=== PATIENT | male | born 1975 | race Caucasian/White ===

== ENCOUNTER 2019-07-13 13:22 | Emergency (ER) | payer MEDICARE, SELFPAY ==
--- NOTE | ~2019-07-13 | CT_ITS ---
EXAMINATION: CT brain wo con DATE: 07/13/2019 14:39 INDICATION: Numbness and weakness TECHNIQUE: Computed tomography (CT) of the head was performed without intravenous contrast. The dose- length product was 605.33 mGy-cm. The mA was adjusted according to patient size. Iterative reconstruc tion technique was employed. COMPARISON: CT dated 11/16/2007 FINDINGS: No acute intracranial hemorrhage, infarction, mass or mass effect. No ventriculomegaly or m idline shift. Basilar cisterns are patent. Paranasal sinuses and mastoids are pneumatized. No depress ed skull fractures. Midline sagittal images are unremarkable. IMPRESSION: 1. No acute intracranial abnormality. Reviewed, dictated and finalized at location A.
--- NOTE | ~2019-07-13 | XR_ITS ---
EXAMINATION: XR chest 2V 07/13/2019 13:42 INDICATION: Chest pain for 2 days PROCEDURE: PA and lateral views of the chest COMPARISON: No prior studies for comparison. FINDINGS: The lungs are clear. The cardiomediastinal silhouette is within normal limits. There are no pleural effusions. There is no pneumothorax suspected. IMPRESSION: 1: NO ACUTE CARDIOPULMONARY DISEASE. Reviewed, dictated and finalized at location A.
--- NOTE | 2019-07-13 13:25 | ECG_ITS ---
Measurements Intervals [place] Rate: 85 P: 47 [place]: 161 QRS: -10 QRSD: 99 T: 23 QT: 324 QTc: 387 Interpretive Statements SINUS RHYTHM INCOMPLETE RIGHT BUNDLE BRANCH BLOCK VOLTAGE CRITERIA FOR LVH BASELINE ARTIFACT- I, III, AVL, AVF, V1 BORDERLINE ECG Electronically Signed On 07-13-2019 13:31:01 CDT by Leonard Root D.O.
[2019-07-13 13:26] VITALS: BP 158/91; PULSE 94; RESP 22; TEMP 37.1; O2SAT 99
[2019-07-13 13:33] VITALS: PULSE 91
[2019-07-13] MEDS: ASPIRIN 81 MG CHEWABLE TABLET 324 MG PO (13:39)
[2019-07-13 13:43] LABS: Basophils Percent Auto 0.4 % (0.2-1.2); Eosinophils Percent Auto 0.4 % (0-4.4); Hematocrit 47.1 % (42.0-52.0); Hemoglobin 15.8 g/dL (14.0-18.0); Immature Granulocyte Absolute 0.02 K/mm3 (0.00-0.031); Immature Granulocyte Percent A 0.2 % (0-0.5); Lymphocytes Absolute Auto 1.78 K/mm3 (0.9-3.2); Lymphocytes Percent Auto 21.2 % (18.3-44.2); Mean Corpuscular HGB Conc 33.5 g/dl (32-36); Mean Corpuscular Hemoglobin 28.2 pg (26-34); Mean Platelet Volume 11.1 fl (7.4-10.4); Monocytes Absolute Auto 0.6 K/mm3 (0.1-0.6); Monocytes Percent Auto 6.9 % (2.6-8.5); Neutrophils Absolute Auto 5.9 K/mm3 (1.3-6.7); Neutrophils Percent Auto 70.9 % (45.5-73.1); Platelet Count Result 156 k/mm3 (150-375); Red Blood Count 5.61 M/mm3 (4.6-6.20); Red Cell Distribution Width 13.7 % (11.5-14.5); White Blood Count 8.4 K/mm3 (4.5-10.0)
--- NOTE | 2019-07-13 13:49 | ED.CHESTPAIN ---
HPI - Chest Pain General Chief Complaint: Chest Pain Stated Complaint: CHEST PAIN X2D Time Seen by Provider: 07/13/19 13:32 Source: patient Mode of arrival: ambulatory Limitations: no limitations History of Present Illness HPI narrative: Patient is a 43-year-old gentleman who presents for evaluation of facial numbness and chest pain. Patient states that on Friday he began experiencing facial numbness that now has progressed and he now feels some paresthesias and numbness throughout his entire body, patient states that overnight he had left-sided chest pain that traveled down his left arm. At one point, patient states he had difficulty speaking and felt somewhat confused, but this has resolved. The chest pain was described as a dull, aching pressure over the center of his chest associated with left arm numbness, heaviness and feeling sweaty. No nausea, vomiting, cough or shortness of breath. No lower extremity swelling or redness. No history of CT. Patient ambulated into the emergency department. Related Data Allergies Allergy/AdvReac Type Severity Reaction Status Date / Time poison oak extract Allergy Unknown Rash Verified 12/08/17 13:59 Review of Systems Review of Systems: Narrative: CONSTITUTIONAL: Denies fever, chills, reports diaphoresis yesterday CARDIOVASCULAR: Reports chest pain, denies palpitations or edema RESPIRATORY: Denies cough or dyspnea. GASTROINTESTINAL: Denies abdominal pain, nausea, vomiting, or diarrhea. GENITOURINARY: Denies dysuria or hematuria. SKIN: Denies rash or itching. MUSCULOSKELETAL: Denies back pain, joint pain, or myalgia. NEUROLOGIC: Denies headache, reports numbness in his hands and extremities PSYCHIATRIC: Denies anxiety or depression. [facility] Past Medical History Medical History (Updated 07/13/19 @ 15:19 by Selena De Los Santos MD) Acid reflux Alcohol use Anxiety Constipation Diabetes Diarrhea Methadone use Testicular cancer Surgical History Surgical History (Updated 07/13/19 @ 13:52 by Selena De Los Santos MD) History of appendectomy History of carpal tunnel surgery Hx of cholecystectomy Social History Social History (Updated 07/13/19 @ 13:53 by Selena De Los Santos MD) Smoking status: Current every day smoker Alcohol intake: current Substance use: former Living arrangements: with family Gender identity (if verbalized by the patient): Male Exam Narrative: Exam Narrative: GENERAL: Awake, alert, conversant HEAD: Normocephalic, atraumatic. EYES: PERRLA and EOMI. ENT: Nares clear, no rhinorrhea or epistaxis. Mucous membranes moist. NECK: Supple. CHEST: No respiratory distress, breathing even and non labored HEART: Regular rate, sinus rhythm ABDOMEN:Non distended, non tender EXTREMITIES: Normal range of motion. No edema. SKIN: Warm, dry, no rash. NEURO: Alert and oriented x3 patient unable to complete [id number] on the left due to pain in his left arm and difficulty with movement.. EOMs intact without nystagmus. No facial droop/asymmetry noted bilaterally. Grimace intact. No dysarthria. Intact sensation in face. Hearing intact bilaterally. Shoulder shrug intact. Strength 4/5 left upper extremity, 5 out of 5 right upper extremity, patient resists his arm following, there is no flaccid paralysis.. Strength 5/5 bilateral lower extremities. Reflexes 2+ patellar. Ambulatory exam deferred, pt was able to ambulate in the emergency department Course Vital Signs Vital signs: Vital Signs Temperature 37.1 C 07/13/19 13:26 Pulse Rate 94 07/13/19 13:26 Respiratory Rate 22 H 07/13/19 13:26 Blood Pressure 158/91 H 07/13/19 13:26 Pulse Oximetry 99 07/13/19 13:26 Temperature 37.1 C 07/13/19 13:26 Pulse Rate 83 07/13/19 15:07 Respiratory Rate 12 07/13/19 15:07 Blood Pressure 142/93 H 07/13/19 15:07 Pulse Oximetry 96 07/13/19 15:07 MDM - Chest Pain MDM Narrative Medical decision making narrative: Patient initially presented for evaluation o
[2019-07-13 13:54] LABS: INR 0.9; Prothrombin Time 12.1 Seconds (11.1-14.7)
[2019-07-13 13:55] LABS: Blood Urea Nitrogen 13 mg/dL (9-20); Calcium 10.2 mg/dL (8.4-10.2); Carbon Dioxide 29 mmol/L (22-30); Chloride 102 mmol/L (98-107); Estimated CRCL calculation 138 ml/min; Estimated Glomerular Filt Rate > 60; Glucose 95 mg/dL (75-110); Partial Thromboplastin Time 28.3 SECONDS (22.3-36.8); Potassium 4.1 mmol/L (3.4-5.0); Sodium 138 mmol/L (137-145)
[2019-07-13 14:07] LABS: Troponin I < 0.012 ng/mL (0.000-0.034)
[2019-07-13 14:24] VITALS: BP 147/91; PULSE 88; RESP 17; O2SAT 95
[2019-07-13 15:07] VITALS: BP 142/93; PULSE 83; RESP 12; O2SAT 96
[2019-07-13 15:38] VITALS: BP 138/93; PULSE 85; RESP 11; O2SAT 96
== END 2019-07-13 15:45 | disposition home or self-care (01) ==
PROVIDERS: Emergency Provider Emergency Medicine; PCP Family Medicine Adolescent Medicine
DX: R20.2 Paresthesia of skin (principal); E11.9 Type 2 diabetes mellitus without complications; Z85.47 Personal history of malignant neoplasm of testis; F17.200 Nicotine dependence, unspecified, uncomplicated; R07.9 Chest pain, unspecified; K21.9 Gastro-esophageal reflux disease without esophagitis
CPT/HCPCS: 36415; 70450; 71046; 80048; 84484; 85025; 85610; 85730; 93005; 99284; A9270

== ENCOUNTER 2019-10-08 08:24 | Outpatient (CLI) | payer MEDICARE, SELFPAY ==
--- NOTE | ~2019-10-08 | MR_ITS ---
EXAMINATION: MR brain/brain stem wo con DATE: 10/08/2019 10:40 INDICATION: Seizure. TECHNIQUE: Magnetic resonance imaging (MRI) of the brain and brainstem was performed without intraven ous contrast. Sequences included sagittal and axial T1-weighted FSE, axial diffusion-weighted FS EPI, axial T2*-weighted GRE, axial T2-weighted FLAIR Propeller, axial T2-weighted Propeller, coronal T2-w eighted FLAIR, and coronal T1-weighted 3D FSPGR. Apparent diffusion coefficient (ADC) maps were creat ed. COMPARISON: Head CT 07/13/2019 FINDINGS: There is no intracranial hemorrhage, acute infarction, or abnormal intracranial mass lesion . The hippocampi are normal symmetric. The ventricles are normal in size. The paranasal sinuses are c lear. The mastoid air cells are normal. The orbits are normal. IMPRESSION: 1. Normal brain. Reviewed, dictated and finalized at location B. IMPRESSION: 1. Normal brain.
--- NOTE | 2019-10-08 13:26 | P.NEURO_ITS ---
Neurology EEG Report General Information Date of Study: 10/08/19 Test: EEG Diagnosis: SEIZURES Date of Recordin1975 EEG Number: [id number] Clinical History: Patient is complaining of cognitive dysfunction over the last couple of years and is getting worse EEG Description: basic resting occipital frequency consist of moderate amount of low voltage to medium voltage 8 to 10 hertz per 2nd alpha admixed with low- voltage 15 to 18 hertz per 2nd beta activity. During drowsiness low voltage beta activity is seen diffusely admixed with waxing and waning posterior alpha rhythm. Bilateral symmetrical sleep spindles are seen during sleep with inte rmittent EKG artifact. Non paroxysmal. Nonfocal focal. Non lateralizing. Impression: Normal EEG during wakefulness and sleep
== END 2019-10-08 08:25 | disposition home or self-care (01) ==
LOC: ANHNEURO 08:26
PROVIDERS: PCP Family Medicine Adolescent Medicine; Visit Provider Psychiatry & Neurology Neurology
DX: R56.9 Unspecified convulsions (principal)
CPT/HCPCS: 70551; 95816

== ENCOUNTER 2019-10-27 08:40 | Outpatient (CLI) | payer MEDICARE, SELFPAY ==
--- NOTE | 2019-10-27 10:30 | NEURO_ITS ---
Patient Number: [id number] Impression: # Non-insulin dependent diabetic complains of numbness and cramps in muscles. # Right mild ulnar neuropathy across the elbow. # Needle/EMG exam revealed mildly neurogenic changes. # Clinical correlation recommended. Nerve Conduction Studies Anti Sensory Summary Table Stim Site NR Peak (ms) P-T Amp (?V) Site1 Site2 Delta-P (ms) Dist (cm) Cesar (m/s) Left Median Anti Sensory (2-3nd Digit) Wrist 3.1 43.8 Wrist 2-3nd Digit 3.1 14.0 45 Wrist 3.0 36.0 Wrist 2-3nd Digit 3.1 14.0 45 Right Median Anti Sensory (2-3nd Digit) Wrist 2.9 71.8 Wrist 2-3nd Digit 2.9 14.0 48 Wrist 2.9 61.6 Wrist 2-3nd Digit 2.9 14.0 48 Left Radial Anti Sensory (Base 1st Digit) Wrist 2.4 14.9 Wrist Base 1st Digit 2.4 0.0 Right Radial Anti Sensory (Base 1st Digit) Wrist 2.8 10.0 Wrist Base 1st Digit 2.8 0.0 Left Sup Fibular Anti Sensory (Ant Lat Mall) 14 cm 3.7 16.8 14 cm Ant Lat Mall 3.7 16.0 43 Right Sup Fibular Anti Sensory (Ant Lat Mall) 14 cm 3.0 19.8 14 cm Ant Lat Mall 3.0 16.0 53 Left Sural Anti Sensory (Lat Mall) Calf 3.6 1.7 Calf Lat Mall 3.6 16.0 44 Right Sural Anti Sensory (Lat Mall) Calf 3.2 7.9 Calf Lat Mall 3.2 16.0 50 Left Ulnar Anti Sensory (5th Digit) Wrist 3.1 23.3 Wrist 5th Digit 3.1 14.0 45 Right Ulnar Anti Sensory (5th Digit) Wrist 2.8 18.7 Wrist 5th Digit 2.8 14.0 50 Motor Summary Table Stim Site NR Onset (ms) O-P Amp (mV) Site1 Site2 Delta-0 (ms) Dist (cm) Cesar (m/s) Left Median Motor (Abd Poll Brev) Wrist 3.0 5.9 Elbow Wrist 6.0 35.0 58 Elbow 9.0 3.0 Right Median Motor (Abd Poll Brev) Wrist 3.0 3.8 Elbow Wrist 5.4 31.0 57 Elbow 8.4 1.5 Left Peroneal Motor (Vastus Med) Ankle 4.4 2.6 Popit Ankle 8.3 44.0 53 Popit 12.7 2.2 Right Peroneal Motor (Vastus Med) Ankle 4.1 5.3 Popit Ankle 8.2 39.0 48 Popit 12.3 3.3 Left Tibial Motor (Abd Moulton Brev) Ankle 4.9 2.3 Knee Ankle 8.9 45.0 51 Knee 13.8 1.9 Right Tibial Motor (Abd Moulton Brev) Ankle 4.8 6.2 Knee Ankle 9.7 46.0 47 Knee 14.5 5.2 Left Ulnar Motor (Abd Dig Minimi) Wrist 3.1 6.4 A Elbow Wrist 5.7 33.0 58 A Elbow 8.8 5.3 Right Ulnar Motor (Abd Dig Minimi) Wrist 3.2 4.0 A Elbow Wrist 6.6 33.0 50 A Elbow 9.8 2.8 B Elbow Wrist 4.4 24.0 55 B Elbow 7.6 2.3 F Wave Studies NR F-Lat (ms) L-R F-Lat (ms) Left Median (Mrkrs) (Abd Poll Brev) 29.20 0.64 Right Median (Mrkrs) (Abd Poll Brev) 29.84 0.64 Left Peroneal (Mrkrs) (EDB) 52.26 0.18 Right Peroneal (Mrkrs) (EDB) 52.08 0.18 Left Tibial (Mrkrs) (Abd Hallucis) 52.91 0.16 Right Tibial (Mrkrs) (Abd Hallucis) 52.74 0.16 Left Ulnar (Mrkrs) (Abd Dig Min) 30.69 0.00 Right Ulnar (Mrkrs) (Abd Dig Min) 30.69 0.00 EMG Side Muscle Nerve Root Ins Act Fibs Amp Dur Recrt Comment Right 1stDorInt Ulnar C8-T1 Nml Nml Nml >12ms Nml Right Ext Indicis Radial (Post Int) C7-8 Nml Nml Nml Nml Nml Right Ext Digitorum Radial (Post Int) C7-8 Nml Nml Nml Nml Nml Right BrachioRad Radial C5-6 Nml Nml Nml Nml Nml Right PronatorTeres Median C6-7 Nml Nml Nml Nml Nml Right Abd Poll Brev Median C8-T1 Nml N
== END 2019-10-27 08:41 | disposition home or self-care (01) ==
LOC: ANHNEURO 08:41
PROVIDERS: PCP Family Medicine Adolescent Medicine; Visit Provider Psychiatry & Neurology Neurology
DX: R20.2 Paresthesia of skin (principal); G56.21 Lesion of ulnar nerve, right upper limb
CPT/HCPCS: 95886; 95913

== ENCOUNTER 2020-03-01 14:33 | Emergency (ER) | payer MEDICARE, SELFPAY ==
--- NOTE | ~2020-03-01 | XR_ITS ---
EXAMINATION: XR chest 1V portable INDICATION: Shortness of breath and headache TECHNIQUE: Portable AP chest at 1546 hours COMPARISON: 07/13/2019 FINDINGS: There are minimal airspace opacities of the lung bases. No pleural effusion or pneumothorax is identified. The cardiomediastinal silhouette is normal. IMPRESSION: 1. Minimal airspace opacities of the lung bases, consistent with atelectasis versus pneumonia. Reviewed, dictated and finalized at location A. T OFFICE DEVELOPER IMPRESSION: 1. Minimal airspace opacities of the lung bases, consistent with atelectasis ve rsus pneumonia.
[2020-03-01 14:40] VITALS: BP 170/105; PULSE 112; RESP 17; TEMP 36.7; O2SAT 97
--- NOTE | 2020-03-01 14:45 | ECG_ITS ---
Measurements Intervals [place] Rate: 96 P: 58 [place]: 170 QRS: -6 QRSD: 102 T: 32 QT: 332 QTc: 421 Interpretive Statements SINUS RHYTHM DELAYED PRECORDIAL R/S TRANSITION VOLTAGE CRITERIA FOR LVH BORDERLINE ECG Electronically Signed On 03-01-2020 15:08:13 JANITOR CARETAKER by Leonard Root D.O.
[2020-03-01 14:49] VITALS: PULSE 99
[2020-03-01 15:33] VITALS: BP 162/93; PULSE 102; RESP 18; O2SAT 95
[2020-03-01 16:03] LABS: Basophils Percent Auto 0.6 % (0.2-1.2); Eosinophils Absolute Auto 0.1 K/mm3 (0-0.3); Eosinophils Percent Auto 0.9 % (0-4.4); Hematocrit 47.8 % (42.0-52.0); Immature Granulocyte Absolute 0.03 K/mm3 (0.00-0.031); Immature Granulocyte Percent A 0.4 % (0-0.5); Immature Platelet Fraction Pct 5.6 % (0.9-11.2); Lymphocytes Absolute Auto 1.85 K/mm3 (0.9-3.2); Lymphocytes Percent Auto 26.6 % (18.3-44.2); Mean Corpuscular HGB Conc 33.5 g/dl (32-36); Mean Corpuscular Hemoglobin 27.9 pg (26-34); Mean Corpuscular Volume 83.3 fl (80-100); Mean Platelet Volume 11.2 fl (7.4-10.4); Monocytes Absolute Auto 0.6 K/mm3 (0.1-0.6); Monocytes Percent Auto 8.1 % (2.6-8.5); Neutrophils Absolute Auto 4.4 K/mm3 (1.3-6.7); Neutrophils Percent Auto 63.4 % (45.5-73.1); Platelet Count Result 139 k/mm3 (150-375); Red Blood Count 5.74 M/mm3 (4.6-6.20); Red Cell Distribution Width 13.7 % (11.5-14.5)
--- NOTE | 2020-03-01 16:09 | ED.SOB ---
HPI - SOB/Dyspnea General Chief Complaint: Shortness of Breath/Dyspnea Stated Complaint: shortness of breath Time Seen by Provider: 03/01/20 14:37 History of Present Illness HPI Narrative: Patient is a 44-year-old male who presents ER with shortness of breath. Ongoing over the last couple of days. Feels like he cannot get a full deep breath at times. He is winded when he ambulates. He also feels winded when he bends over. This will also occasionally make him feel dizzy and like his heart racing. Different than vertigo he had in the past. No chest pain or chest pressure denies any nausea/vomiting. He has had no fevers or chills or sweats. No productive cough. No known sick contacts. No loss of smell or taste. Related Data Home Medications Medication Instructions Recorded Confirmed gabapentin 600 mg tablet 600 mg PO QID tablet 11/04/19 02/22/20 hydrocodone 7.5 mg-acetaminophen 1 tablet PO Q8H PRN 11/04/19 02/22/20 325 mg tablet metformin 500 mg tablet 500 mg PO DAILY 11/04/19 02/22/20 quetiapine 100 mg tablet 100 mg PO BID 11/04/19 02/22/20 aripiprazole 10 mg tablet 10 mg PO DAILY 02/22/20 omeprazole 20 mg capsule,delayed 20 mg PO BID 02/22/20 release Allergies Allergy/AdvReac Type Severity Reaction Status Date / Time poison oak extract Allergy Unknown Rash Verified 02/22/20 12:39 Review of Systems Review of Systems: All systems reviewed & are unremarkable except as noted in HPI and below Constitutional: Constitutional: Denies chills, Denies fever(s) and Denies weakness ENT: Denies nasal congestion and Denies sore throat Cardiovascular: Cardiovascular: Denies chest pain, Denies rapid heart rate and Denies radiating jaw, neck or arm pain Respiratory: Respiratory: Denies cough, Reports dyspnea and Denies wheezing Gastrointestinal: Gastrointestinal: Denies nausea and Denies vomiting Neurologic: Reports dizziness, Denies focal weakness and Denies numbness PMFSH Past Medical History Medical History (Updated 03/01/20 @ 17:35 by Orville Howard MD) Acid reflux Alcohol use Anxiety Constipation Diabetes Diarrhea Hearing loss Methadone use Testicular cancer Trigger thumb of right hand Wears glasses Weight gain Surgical History Surgical History History of appendectomy History of carpal tunnel surgery Hx of cholecystectomy Social History Social History Smoking status: Current every day smoker Alcohol intake: current Substance use: former Gender identity (if verbalized by the patient): Male Exam Narrative: Exam Narrative: GENERAL: Well-appearing, well-nourished, and in no acute distress. HEAD: Normocephalic, atraumatic. EYES: PERRL and EOMI. strabismus noted. ENT: Mucous membranes moist. Right TM with scarring, otherwise TMs unremarkable. CHEST: Clear to auscultation. No respiratory distress. HEART: Tachycardic and regular. Normal peripheral pulses. EXTREMITIES: Normal range of motion. No edema. NEURO: Alert and oriented x3. PSYCH: Normal mood and affect. Course Course Emergency Course: Patient resting comfortably. Informed of results. Swabbed for Covid given airspace disease with normal white count. Patient be started on Z-Arturo and albuterol to help with symptoms. Discussed self-isolation until receiving Covid result and should he be positive prolonged isolation till cleared by health department. Patient verbalized understanding. Vital Signs Vital signs: Vital Signs Temperature 98.0 F 03/01/20 14:40 Pulse Rate 112 H 03/01/20 14:40 Respiratory Rate 17 03/01/20 14:40 Blood Pressure 170/105 H 03/01/20 14:40 Pulse Oximetry 97 03/01/20 14:40 Temperature 98.0 F 03/01/20 14:40 Pulse Rate 101 H 03/01/20 17:18 Respiratory Rate 19 03/01/20 17:18 Blood Pressure 145/93 H 03/01/20 17:18 Pulse Oximetry 97 03/01/20 17:18 MDM - SOB/D
[2020-03-01 16:10] LABS: Anion Gap 6 mmol/L (8-16); Blood Urea Nitrogen 13 mg/dL (9-20); Calcium 9.8 mg/dL (8.4-10.2); Carbon Dioxide 30 mmol/L (22-30); Chloride 101 mmol/L (98-107); Estimated CRCL calculation 165 ml/min; Estimated Glomerular Filt Rate > 60; Glucose 145 mg/dL (75-110); Potassium 4.1 mmol/L (3.4-5.0); Sodium 137 mmol/L (137-145)
[2020-03-01 16:15] LABS: D Dimer 0.27 ug/mL (<0.48)
[2020-03-01 16:36] VITALS: BP 155/91; PULSE 98; RESP 18; O2SAT 96
[2020-03-01 17:18] VITALS: BP 145/93; PULSE 101; RESP 19; O2SAT 97
[2020-03-03 01:27] LABS: SARS-CoV-2 RNA PCR Negative
== END 2020-03-01 17:49 | disposition home or self-care (01) ==
PROVIDERS: Emergency Provider Emergency Medicine; PCP Family Medicine Adolescent Medicine
DX: Z20.822 Contact with and (suspected) exposure to COVID-19 (principal); J18.9 Pneumonia, unspecified organism; K21.9 Gastro-esophageal reflux disease without esophagitis; F41.9 Anxiety disorder, unspecified; E11.9 Type 2 diabetes mellitus without complications; Z79.84 Long term (current) use of oral hypoglycemic drugs
CPT/HCPCS: 36415; 71045; 80048; 85025; 85055; 85380; 93005; 99283; C9803; U0003; U0005

== ENCOUNTER 2020-03-06 11:45 | Outpatient (CLI) | payer MEDICARE, SELFPAY ==
--- NOTE | ~2020-03-06 | XR_ITS ---
EXAMINATION: XR foot LT min 3V, XR ankle LT min 3V DATE: 03/06/2020 12:11 INDICATION: Left foot and ankle pain TECHNIQUE: 1. Weight bearing anteroposterior , mortise, additional oblique and lateral view of the left ankle we re obtained. 2. Weight bearing dorsal plantar, two oblique and lateral views of the left foot were obtained. COMPARISON: None. FINDINGS: Alignment of the foot and ankle is normal. No fracture or osteochondral lesion. Minimal to mild polya rticular osteoarthritis at the first metatarsophalangeal and several tarsal metatarsal and interphala ngeal joints. Moderate-sized plantar calcaneal spur and tiny Achilles calcaneal enthesophytes. No per iosteal reaction or suspicious lytic or blastic bone lesions. No ankle joint effusion. The soft tissu es are unremarkable. IMPRESSION: 1. Minimal to mild polyarticular osteoarthritis in the fore and midfoot. 2. Achilles and plantar calcaneal spurs. Reviewed, dictated and finalized at location B. DING ROOM INSPECTOR IMPRESSION: 1. Minimal to mild polyarticular osteoarthritis in the fore and midfoot. 2. Achilles and plantar calcaneal spurs.
== END 2020-03-06 11:46 | disposition home or self-care (01) ==
LOC: ANHBWCIMG 11:46
PROVIDERS: PCP Family Medicine Adolescent Medicine; Visit Provider Orthopaedic Surgery
DX: M19.072 Primary osteoarthritis, left ankle and foot (principal)
CPT/HCPCS: 73610; 73630

== ENCOUNTER 2020-04-03 12:09 | Outpatient (CLI) | payer MEDICARE, SELFPAY ==
--- NOTE | ~2020-04-03 | XR_ITS ---
EXAMINATION: XR knee LT min 4V DATE: 04/03/2020 12:28 INDICATION: Left knee pain. TECHNIQUE: 4 views of left knee were obtained. COMPARISON: None. FINDINGS: Bone alignment is normal. No fracture. There is mild tricompartmental osteoarthritis charac terized by tiny marginal osteophytes. No knee joint effusion. IMPRESSION: 1. Mild left knee osteoarthritis. Reviewed, dictated and finalized at location A. BUSTER HELPER
== END 2020-04-03 12:10 | disposition home or self-care (01) ==
LOC: ANHBWCIMG 12:11
PROVIDERS: PCP Family Medicine Adolescent Medicine; Visit Provider Orthopaedic Surgery
DX: M25.562 Pain in left knee (principal); M17.12 Unilateral primary osteoarthritis, left knee
CPT/HCPCS: 73564

== ENCOUNTER 2021-10-22 11:16 | Emergency (ER) | payer MEDICARE, SELFPAY ==
--- NOTE | ~2021-10-22 | CT_ITS ---
EXAMINATION: CT abdomen pelvis w con DATE: 10/22/2021 12:32 INDICATION: Right upper quadrant abdominal pain. TECHNIQUE: Computed tomography (CT) of the abdomen and pelvis was performed with 100 mL Omnipaque 350 intravenous contrast. Automated exposure control and iterative reconstruction technique were employe d. The dose-length product was 1558.43 mGy-cm. COMPARISON: CT abdomen and pelvis 08/31/2014 FINDINGS: The visualized portions of the lung bases demonstrate mild atelectasis. There are small ple ural effusions, right worse than left. The heart size is normal. No pericardial effusion. The liver i s normal. The gallbladder is normal in size. There are wall calcifications of the gallbladder. There is mild splenomegaly. The pancreas, adrenal glands, and kidneys are normal. There is fat stranding ad jacent to the ascending colon, consistent with fat necrosis. There is a small sliding hiatal hernia. There are no dilated loops of bowel. The appendix is not visualized. There are no pathologically enla rged lymph nodes. There is no free intraperitoneal fluid. There is subcutaneous fat stranding bilater ally, right worse than left, consistent with edema. There is mild thoracolumbar spondylosis. IMPRESSION: 1. Fat stranding adjacent to the ascending colon, consistent with fat necrosis. 2. Small pleural effusions. 3. Chronic mild splenomegaly. 4. Small sliding hiatal hernia. Reviewed, dictated and finalized at location A.
[2021-10-22 11:30] VITALS: BP 161/93; PULSE 91; RESP 18; TEMP 36.6; O2SAT 100
[2021-10-22 12:00] LABS: Alanine Aminotransferase 59 U/L (6-50); Albumin Level 3.9 g/dL (3.5-5.1); Alkaline Phosphatase 58 U/L (38-126); Anion Gap 10 mmol/L (8-16); Aspartate Amino Transferase 36 U/L (17-59); Bilirubin,Total 0.7 mg/dL (0.2-1.3); Blood Urea Nitrogen 11 mg/dL (9-20); Calcium 9.4 mg/dL (8.4-10.2); Carbon Dioxide 26 mmol/L (22-30); Chloride 105 mmol/L (98-107); Estimated CRCL calculation 143 ml/min; Estimated Glomerular Filt Rate > 60; Glucose 144 mg/dL (65-110); Lipase 30 U/L (23-300); Potassium 3.9 mmol/L (3.4-5.0); Sodium 141 mmol/L (137-145)
[2021-10-22 12:02] LABS: Basophils Percent Auto 0.3 % (0.2-1.2); Eosinophils Percent Auto 0.5 % (0-4.4); Hematocrit 39.2 % (42.0-52.0); Hemoglobin 12.6 g/dL (14.0-18.0); Immature Granulocyte Absolute 0.04 K/mm3 (0.00-0.031); Immature Granulocyte Percent A 0.5 % (0-0.5); Lymphocytes Absolute Auto 1.35 K/mm3 (0.9-3.2); Lymphocytes Percent Auto 18.5 % (18.3-44.2); Mean Corpuscular HGB Conc 32.1 g/dl (32-36); Mean Corpuscular Hemoglobin 27.4 pg (26-34); Mean Corpuscular Volume 85.2 fl (80-100); Mean Platelet Volume 10.4 fl (7.4-10.4); Monocytes Absolute Auto 0.8 K/mm3 (0.1-0.6); Monocytes Percent Auto 10.3 % (2.6-8.5); Neutrophils Absolute Auto 5.1 K/mm3 (1.3-6.7); Neutrophils Percent Auto 69.9 % (45.5-73.1); Platelet Count Result 127 k/mm3 (150-375); Red Cell Distribution Width 15.2 % (11.5-14.5); White Blood Count 7.3 K/mm3 (4.5-10.0)
[2021-10-22 12:05] LABS: Appearance Urine Clear (Clear); Bilirubin Urine Negative (Negative); Blood Urine Negative (Negative); Color Urine Yellow (Yellow); Glucose Urine UA Negative (Negative); Ketones Urine Negative (Negative); Leukocyte Esterase Ur Negative LEU/UL (Negative); Nitrate Urine Negative (Negative); Protein Urine Negative (Negative); Specific Grav Ur 1.015 (1.001-1.035); Urobilinogen Urine 0.2 mg/dL (<2.0)
--- NOTE | 2021-10-22 12:14 | ED.ABDPAIN ---
HPI - Abdominal Pain General Chief Complaint: Abdominal Pain Stated Complaint: abd pain Time Seen by Provider: 10/22/21 11:54 History of Present Illness HPI narrative: 45-year-old male presents to the emergency room for evaluation of right upper quadrant abdominal pain and diarrhea for 2 weeks. Patient states [place] and has been experiencing multiple episodes of diarrhea since he moved in 2 weeks ago. States he began developing right upper quadrant abdominal pain 3 days ago. Also reports a subjective fever. Related Data Allergies Allergy/AdvReac Type Severity Reaction Status Date / Time poison oak extract Allergy Unknown Rash Verified 10/22/21 11:47 venom-wasp AdvReac Unknown Unknown Verified 10/22/21 11:47 Review of Systems Review of Systems: CONSTITUTIONAL: Denies fever, chills, or sweats. EYES: Denies visual changes, redness, or discharge. ENT: Denies rhinorrhea, congestion, sore throat, or otalgia. CARDIOVASCULAR: Denies chest pain, palpitations, or edema. RESPIRATORY: Denies cough or dyspnea. GASTROINTESTINAL: Reports right upper quadrant pain, diarrhea GENITOURINARY: Denies dysuria or hematuria. SKIN: Denies rash or itching. MUSCULOSKELETAL: Denies back pain, joint pain, or myalgia. NEUROLOGIC: Denies headache, numbness, dizziness, or weakness. PSYCHIATRIC: Denies anxiety or depression. [facility] Past Medical History Medical History Achilles tendinitis of left lower extremity Acid reflux Alcohol use Anxiety Arthritis of knee, left Constipation Diabetes Diabetes type 2, controlled Diarrhea Excessive hunger Excessive thirst Generalized anxiety disorder Hearing loss Hypertension Knee pain, left Methadone use Plantar fasciitis of left foot Testicular cancer Testicular hypofunction Trigger thumb of right hand Wears glasses Weight gain Surgical History Surgical History History of appendectomy History of carpal tunnel surgery Hx of cholecystectomy Family History Family History Mother Breast cancer Depression Hypertension Other Diabetes mellitus Social History Social History Smoking status: Never smoker Second hand tobacco smoke exposure: No Alcohol intake: former Substance use: never Gender identity (if verbalized by the patient): Male Sexual Orientation (if Verbalized by the Patient): Straight or Heterosexual Spiritual care concerns: No Agree to blood products: Yes Exam Narrative: GENERAL: Well-appearing, well-nourished, no physical limitations, and in no acute distress. HEAD: Normocephalic, atraumatic. EYES: Conjunctivae normal, PERRLA and EOMI. CHEST: Clear to auscultation. No respiratory distress. No wheezes rales or rhonchi. No tenderness. HEART: Regular rate and rhythm. No murmur heard. Normal peripheral pulses. ABDOMEN: Soft, right upper quadrant tenderness, nondistended, normal active bowel sounds. BACK: No CVA tenderness EXTREMITIES: Normal range of motion. No edema. No clubbing or cyanosis SKIN: Warm, dry, no rash. No noted wounds NEURO: No focal deficits. Alert and oriented x3. MAEW. CN's II-XI intact bilaterally, normal gait PSYCH: Cooperative. Normal mood and affect. Course Vital Signs Vital signs: Vital Signs Temperature 36.6 C 10/22/21 11:30 Pulse Rate 91 10/22/21 11:30 Respiratory Rate 18 10/22/21 11:30 Blood Pressure 161/93 H 10/22/21 11:30 Pulse Oximetry 100 10/22/21 11:30 Oxygen Delivery Room Air 10/22/21 11:30 Temperature 36.6 C 10/22/21 11:30 Pulse Rate 91 10/22/21 11:30 Respiratory Rate 18 10/22/21 11:30 Blood Pressure 161/93 H 10/22/21 11:30 Pulse Oximetry 100 10/22/21 11:30 Oxygen Delivery Room Air 10/22/21 11:30 MDM - Abdominal Pain MDM [place]
[2021-10-22 12:15] LABS: Add Urine Microscopic? NO
[2021-10-22] MEDS: DICYCLOMINE HCL INJ 20 MG/2 ML VIAL IM (12:18)
[2021-10-22] MEDS: SODIUM CHLORIDE 0.9% IV 1,000 ML 999 ML IV CONT (12:18)
[2021-10-22 13:20] VITALS: BP 141/75; PULSE 86; RESP 16; O2SAT 99
== END 2021-10-22 13:25 | disposition home or self-care (01) ==
PROVIDERS: Emergency Medicine; Emergency Provider Nurse Practitioner Family; PCP Family Medicine Adolescent Medicine
DX: R10.11 Right upper quadrant pain (principal); R19.7 Diarrhea, unspecified; E11.9 Type 2 diabetes mellitus without complications; I10 Essential (primary) hypertension; K21.9 Gastro-esophageal reflux disease without esophagitis; F41.1 Generalized anxiety disorder; Z79.84 Long term (current) use of oral hypoglycemic drugs; Z79.891 Long term (current) use of opiate analgesic
CPT/HCPCS: 36415; 74177; 80053; 81003; 83690; 85025; 85055; 96372; 99283; 99284; J0500; J7030; Q9967

== ENCOUNTER 2022-04-30 10:17 | Outpatient (CLI) | payer MEDICARE, SELFPAY ==
--- NOTE | ~2022-04-30 | CT_ITS ---
CT of the Abdomen and Pelvis: Indication: Abdominal pain Technique: 2.5 mm axial scans were obtained through the abdomen and pelvis following intravenous adm inistration of 100 cc of Omnipaque 350. Dose reduction technique was used on this scan by utilizing a utomated exposure control and iterative reconstruction technique. The dose-length product (DLP) was 1 472.23 mGy-cm. COMPARISON: 10/22/2021 Findings: Scans through the lung bases are unremarkable. The liver, pancreas, gallbladder, adrenals and kidneys are within normal limits. Mild splenomegaly no forrest. No evidence of aortic aneurysm. No lymphadenopathy. No bowel obstruction or bowel wall thickening. There is no evidence to suggest acute appendicitis. Images through the pelvis were performed. Urinary bladder unremarkable. Prostate gland and seminal ve sicles are unremarkable. No ascites. Impression: Splenomegaly. No other significant findings. Reviewed, dictated and finalized at [facility]. Impression: Splenomegaly. No other significant findings.
[2022-04-30 10:40] LABS: Estimated Glomerular Filt Rate > 60
== END 2022-04-30 10:18 | disposition home or self-care (01) ==
PROVIDERS: PCP Family Medicine Adolescent Medicine; Visit Provider Nurse Practitioner Family
DX: R10.32 Left lower quadrant pain (principal); R16.1 Splenomegaly, not elsewhere classified
CPT/HCPCS: 74177; Q9967

== ENCOUNTER 2022-05-15 00:32 | Day surgery (SDC) | payer MEDICARE, SELFPAY ==
[2022-05-03 14:57] VITALS: BMI 38.0
[2022-05-15 10:31] VITALS: BP 140/96; PULSE 95; RESP 18; TEMP 36.2; O2SAT 98; BMI 37.2
--- NOTE | 2022-05-15 10:39 | WPDANESEPPF ---
Anes - Initial Pre Proc Eval Procedure: Operation Date: 05/15/22 11:00 Proposed Procedures p Esophagogastroduodenoscopy & Colonoscopy - Mason Aguilar MD Date/Time: 05/15/22 10:39 Surgeon: Mason Aguilar MD Pre Op Diagnosis: LLQP, dysphagia Patient Data Age: 46 Gender: M Height: 1.85 m Weight: 127.9 kg Last Vital Signs Temp 36.2 C L 05/15/22 10:31 Pulse 95 05/15/22 10:31 Resp 18 05/15/22 10:31 BP 140/96 H 05/15/22 10:31 Pulse Ox 98 05/15/22 10:31 O2 Del Method Room Air 05/15/22 10:31 Allergies Allergy/AdvReac Type Severity Reaction Status Date / Time poison oak extract Allergy Unknown Rash Verified 05/03/22 14:58 venom-wasp AdvReac Unknown Unknown Verified 05/03/22 14:58 Home Medications Medication Instructions Recorded Confirmed Type blood sugar diagnostic (Blood #400 ea 11/04/19 04/08/22 Rx Glucose Test strips) blood-glucose meter #1 ea 11/04/19 04/08/22 Rx lancets 31 gauge #100 ea 11/04/19 04/08/22 Rx quetiapine 100 mg tablet 100 mg PO BID #180 tabs 07/23/21 05/03/22 Rx triamcinolone acetonide 0.1 % 1 applic topical BID #30 grams 08/22/21 05/03/22 Rx topical cream pregabalin 150 mg capsule (Lyrica) 150 mg PO BID #60 caps 02/18/22 05/03/22 Rx hydrocodone 10 mg-acetaminophen 1 tablet PO Q6H PRN pain #30 tabs 03/04/22 05/03/22 Rx 325 mg tablet calcium polycarbophil 625 mg 1,250 mg PO DAILY 1 month #60 tabs 04/17/22 05/03/22 Rx tablet (FiberCon) diphenoxylate-atropine 2.5 1 tablet PO TID PRN Diarrhea 05/03/22 05/03/22 History mg-0.025 mg tablet (Lomotil) etodolac 500 mg tablet 500 mg PO BID PRN Pain 03/24/23 03/24/23 History glimepiride 1 mg tablet 1 mg PO QAM #90 tabs 05/03/22 05/03/22 Rx lisinopril 20 mg tablet 20 mg PO DAILY 05/03/22 05/03/22 History metformin 500 mg tablet,extended 1,000 mg PO BID 05/03/22 05/03/22 History release 24 hr omeprazole 20 mg capsule,delayed 20 mg PO BID 05/03/22 05/03/22 History release Patient hx anesthesia problems: none Family hx anesthesia problems: none Results Review: All pre-operative results and documents have been reviewed as part of the pre-operative evaluation. [facility] Past Medical History Medical History (Updated 04/08/22 @ 15:03 by Aminata Rose, [employer]) Achilles tendinitis of left lower extremity Acid reflux Alcohol use Anxiety Arthritis of knee, left Constipation Diabetes Diabetes type 2, controlled Diarrhea Excessive hunger Excessive thirst Generalized anxiety disorder Hearing loss Hypertension Knee pain, left Left lower quadrant abdominal pain Methadone use Plantar fasciitis of left foot Testicular cancer Testicular hypofunction Trigger thumb of right hand Wears glasses Weight gain Surgical History Surgical History History of appendectomy History of carpal tunnel surgery Hx of cholecystectomy Family History Family History Mother Breast cancer Depression Hypertension Other Diabetes mellitus Social History Social History Smoking status: Never smoker Second hand tobacco smoke exposure: No Alcohol intake: former Substance use: never Living arrangements: with friend(s) Occupation/Education: unemployed Gender identity (if verbalized by the patient): Male Sexual Orientation (if Verbalized by the Patient): Straight or Heterosexual Spiritual care concerns: No Agree to blood products: Yes Anes - Eval Final PreProcedure Day of Procedure 05/15/22 10:39 Patient weight: obese Heart: regular rate and rhythm Lungs: clear to auscultation and normal air movement Airway: Mallampati scale class II Neurological: alert and oriented Last oral intake: >/= 8 hours ASA classification: III Emergent: no Anesthetic plan: proceed Anesthesia type and monitoring: general GIVS Results Revi
[2022-05-15] MEDS: LACTATED RINGERS 1,000 ML 150 ML IV CONT (10:47)
--- NOTE | 2022-05-15 11:05 | PM.HPGS ---
History of Present Illness History of Present Illness Consent: Risks, benefits, and alternatives have been discussed and questions answered. Patient agrees to proceed with procedure. Chief complaint: LLQP, dysphagia Narrative: Mikey Heaton is a 46 year old male with odynophagia and discomfort after swallowing at throat level, also left flank pain. Remote history of testicular cancer, gerd on ppi. Never had colonoscopy. CT scan mild splenomegaly Review of Systems Constitutional: Constitutional: Denies headache(s) and Denies weakness Eyes: Eyes: Denies blurry vision ENT: Reports Normal hearing present, Denies headache(s) and Denies neck pain Cardiovascular: Cardiovascular: Denies chest pain and Denies dyspnea Respiratory: Respiratory: Denies dyspnea Gastrointestinal: Gastrointestinal: Reports no additional gastrointestinal complaints Genitourinary: Genitourinary: Denies dysuria Musculoskeletal: Musculoskeletal: Denies neck pain Integumentary/Breasts: Skin/Breast: Denies dry skin Neurologic: Reports Normal hearing present, Denies headache(s) and Denies weakness Psychiatric: Psychiatric: Denies anxiety Endocrine: Endocrine: Denies change in body appearance Hematologic/Lymphatic: Hematologic/Lymphatic: Denies easy bleeding Allergic/Immunologic: Allergic/Immunologic: Denies urticaria PMFSH Past Medical History Medical History (Updated 05/15/22 @ 11:07 by Mason Aguilar MD) Achilles tendinitis of left lower extremity Acid reflux Alcohol use Anxiety Arthritis of knee, left Colon cancer screening Constipation Diabetes Diabetes type 2, controlled Diarrhea Excessive hunger Excessive thirst Generalized anxiety disorder Hearing loss Hypertension Knee pain, left Left lower quadrant abdominal pain Methadone use Plantar fasciitis of left foot Testicular cancer Testicular hypofunction Trigger thumb of right hand Wears glasses Weight gain Surgical History Surgical History History of appendectomy History of carpal tunnel surgery Hx of cholecystectomy Family History Family History Mother Breast cancer Depression Hypertension Other Diabetes mellitus Social History Social History Smoking status: Never smoker Second hand tobacco smoke exposure: No Alcohol intake: former Substance use: never Living arrangements: with friend(s) Occupation/Education: unemployed Gender identity (if verbalized by the patient): Male Sexual Orientation (if Verbalized by the Patient): Straight or Heterosexual Spiritual care concerns: No Agree to blood products: Yes Meds Home Medications and Allergies Home Medications Medication Instructions Recorded Confirmed Type blood sugar diagnostic (Blood #400 ea 11/04/19 04/08/22 Rx Glucose Test strips) blood-glucose meter #1 ea 11/04/19 04/08/22 Rx lancets 31 gauge #100 ea 11/04/19 04/08/22 Rx quetiapine 100 mg tablet 100 mg PO BID #180 tabs 07/23/21 05/03/22 Rx triamcinolone acetonide 0.1 % 1 applic topical BID #30 grams 08/22/21 05/03/22 Rx topical cream pregabalin 150 mg capsule (Lyrica) 150 mg PO BID #60 caps 02/18/22 05/03/22 Rx hydrocodone 10 mg-acetaminophen 1 tablet PO Q6H PRN pain #30 tabs 03/04/22 05/03/22 Rx 325 mg tablet calcium polycarbophil 625 mg 1,250 mg PO DAILY 1 month #60 tabs 04/17/22 05/03/22 Rx tablet (FiberCon) diphenoxylate-atropine 2.5 1 tablet PO TID PRN Diarrhea 05/03/22 05/03/22 History mg-0.025 mg tablet (Lomotil) etodolac 500 mg tablet 500 mg PO BID PRN Pain 05/03/22 05/03/22 History glimepiride 1 mg tablet 1 mg PO QAM #90 tabs 05/03/22 05/03/22 Rx lisinopril 20 mg tablet 20 mg PO DAILY 05/03/22 05/03/22 History metformin 500 mg tablet,extended 1,000 mg PO BID 05/03/22 05/03/22 History release 24 hr omeprazole 20 mg capsule,delayed 20
--- NOTE | 2022-05-15 11:38 | SUR.OPER ---
EGD started at 1113 and ended at 1119. Colonoscopy started at 1124 and ended at 1135.
[2022-05-15 11:41] VITALS: BP 115/61; PULSE 96; RESP 17; O2SAT 98
[2022-05-15 11:51] VITALS: BP 129/79; PULSE 88; RESP 15; O2SAT 98
[2022-05-15 12:01] VITALS: BP 133/82; PULSE 92; RESP 18; O2SAT 100
== END 2022-05-15 12:15 | disposition home or self-care (01) ==
PROVIDERS: PCP Family Medicine Adolescent Medicine; Visit Provider Internal Medicine Gastroenterology
PROC: 0DJ08ZZ Inspection of Upper Intestinal Tract, Via Natural or Artificial Opening Endoscopic (ICD-10-PCS; CPT 43235; principal; 2022-05-15 11:00)
DX: Z12.11 Encounter for screening for malignant neoplasm of colon (principal); D12.3 Benign neoplasm of transverse colon; D17.5 Benign lipomatous neoplasm of intra-abdominal organs; K29.50 Unspecified chronic gastritis without bleeding; K21.9 Gastro-esophageal reflux disease without esophagitis; E11.9 Type 2 diabetes mellitus without complications; I10 Essential (primary) hypertension; F41.1 Generalized anxiety disorder; E66.9 Obesity, unspecified; Z68.37 Body mass index [BMI] 37.0-37.9, adult; Z79.891 Long term (current) use of opiate analgesic; Z79.84 Long term (current) use of oral hypoglycemic drugs; Z85.47 Personal history of malignant neoplasm of testis
CPT/HCPCS: 45385; 43239; 88305; 88342; J2001; J2704; J7120

== ENCOUNTER 2023-01-08 12:39 | Outpatient (CLI) | payer MEDICARE, SELFPAY ==
--- NOTE | 2023-01-08 14:45 | NEURO_ITS ---
Impression: # Diabetic complains of increasing numbness of hands. # Normal Nerve Conduction Study. # No Carpal Tunnel Syndrome or ulnar neuropathy. # Normal needle/EMG exam. # Symptomatology could be related to small fiber neuropathy. Nerve Conduction Studies Anti Sensory Summary Table Stim Site NR Peak (ms) P-T Amp (?V) Site1 Site2 Delta-P (ms) Dist (cm) Cesar (m/s) Left Median Anti Sensory (2-3nd Digit) Wrist 2.9 41.3 Wrist 2-3nd Digit 2.9 14.0 48 Wrist 2.9 42.0 Wrist 2-3nd Digit 2.9 14.0 48 Right Median Anti Sensory (2-3nd Digit) Wrist 3.5 24.6 Wrist 2-3nd Digit 3.5 14.0 40 Wrist 3.5 33.8 Wrist 2-3nd Digit 3.5 14.0 40 Left Radial Anti Sensory (Base 1st Digit) Wrist 2.0 12.4 Wrist Base 1st Digit 2.0 0.0 Right Radial Anti Sensory (Base 1st Digit) Wrist 2.5 20.0 Wrist Base 1st Digit 2.5 0.0 Left Ulnar Anti Sensory (5th Digit) Wrist 2.9 51.8 Wrist 5th Digit 2.9 14.0 48 Right Ulnar Anti Sensory (5th Digit) Wrist 2.7 21.8 Wrist 5th Digit 2.7 14.0 52 Motor Summary Table Stim Site NR Onset (ms) O-P Amp (mV) Site1 Site2 Delta-0 (ms) Dist (cm) Cesar (m/s) Left Median Motor (Abd Poll Brev) Wrist 3.4 4.6 Elbow Wrist 6.0 34.0 57 Elbow 9.4 4.2 Right Median Motor (Abd Poll Brev) Wrist 3.7 4.5 Elbow Wrist 5.4 31.0 57 Elbow 9.1 3.9 Left Ulnar Motor (Abd Dig Minimi) Wrist 2.7 7.6 A Elbow Wrist 6.4 35.0 55 A Elbow 9.1 6.6 Right Ulnar Motor (Abd Dig Minimi) Wrist 3.0 5.0 A Elbow Wrist 6.1 34.0 56 A Elbow 9.1 3.9 F Wave Studies NR F-Lat (ms) L-R F-Lat (ms) Left Median (Mrkrs) (Abd Poll Brev) 29.20 0.86 Right Median (Mrkrs) (Abd Poll Brev) 30.06 0.86 Left Ulnar (Mrkrs) (Abd Dig Min) 30.28 1.40 Right Ulnar (Mrkrs) (Abd Dig Min) 28.88 1.40 EMG Side Muscle Nerve Root Ins Act Fibs Amp Dur Recrt Comment Right 1stDorInt Ulnar C8-T1 Nml Nml Nml Nml Nml Right Ext Indicis Radial (Post Int) C7-8 Nml Nml Nml Nml Nml Right Ext Digitorum Radial (Post Int) C7-8 Nml Nml Nml Nml Nml Right BrachioRad Radial C5-6 Nml Nml Nml Nml Nml Right PronatorTeres Median C6-7 Nml Nml Nml Nml Nml Right Abd Poll Brev Median C8-T1 Nml Nml Nml Nml Nml Left 1stDorInt Ulnar C8-T1 Nml Nml Nml Nml Nml Left Ext Indicis Radial (Post Int) C7-8 Nml Nml Nml Nml Nml Left Ext Digitorum Radial (Post Int) C7-8 Nml Nml Nml Nml Nml Left BrachioRad Radial C5-6 Nml Nml Nml Nml Nml Left PronatorTeres Median C6-7 Nml Nml Nml Nml Nml Left Abd Poll Brev Median C8-T1 Nml Nml Nml Nml Nml Right ABD Dig Min Ulnar C8-T1 Nml Nml Nml Nml Nml Left ABD Dig Min Ulnar C8-T1 Nml Nml Nml Nml Nml MTDD
== END 2023-01-08 12:40 | disposition home or self-care (01) ==
LOC: ANHNEURO 12:40
PROVIDERS: PCP Family Medicine Adolescent Medicine; Visit Provider Student in an Organized Health Care Education/Training Program
DX: G56.03 Carpal tunnel syndrome, bilateral upper limbs (principal)
CPT/HCPCS: 95886; 95911

== ENCOUNTER 2023-06-30 10:11 | Outpatient (CLI) | payer MEDICARE, SELFPAY ==
--- NOTE | ~2023-06-30 | XR_ITS ---
Left ankle Technique: AP and lateral views were obtained. Clinical History: Pain Findings: No acute fracture or dislocation is seen. Osseous alignment is anatomic. Ankle mortise and other visualized joint spaces are preserved. Soft tissues are otherwise unremarkable. Impression: Unremarkable left ankle. Reviewed, dictated and finalized at location . Impression: Unremarkable left ankle.
--- NOTE | ~2023-06-30 | XR_ITS ---
Left foot Technique: AP and lateral views were obtained. Clinical History: Pain Findings: No acute fracture or dislocation is seen. Osseous alignment is anatomic. Joint spaces are p reserved without erosive or degenerative change. Soft tissues are unremarkable. Impression: Unremarkable left foot radiographs. Reviewed, dictated and finalized at [facility]. Impression: Unremarkable left foot radiographs.
--- NOTE | ~2023-06-30 | XR_ITS ---
Right foot Technique: AP and lateral views were obtained. Clinical History: Pain Findings: No acute fracture or dislocation is seen. Osseous alignment is anatomic. Joint spaces are p reserved without erosive or degenerative change. Soft tissues are unremarkable. Impression: Unremarkable right foot radiographs. Reviewed, dictated and finalized at [facility]. Impression: Unremarkable right foot radiographs.
--- NOTE | ~2023-06-30 | XR_ITS ---
Right ankle Technique: AP and lateral views were obtained. Clinical History: Pain Findings: No acute fracture or dislocation is seen. Osseous alignment is anatomic. Ankle mortise and other visualized joint spaces are preserved. Soft tissues are otherwise unremarkable. Impression: Unremarkable right ankle. Reviewed, dictated and finalized at location . Impression: Unremarkable right ankle.
--- NOTE | ~2023-06-30 | XR_ITS ---
Left Hand Technique: PA and lateral views were obtained. Clinical History: Pain Findings: No acute fracture or dislocation is seen. Osseous alignment is anatomic. Joint spaces are p reserved. Soft tissues are unremarkable. Impression: Unremarkable left hand. Reviewed, dictated and finalized at location M. Impression: Unremarkable left hand.
--- NOTE | ~2023-06-30 | XR_ITS ---
Left wrist Technique: PA and lateral views were obtained. Clinical History: Pain Findings: No acute fracture or dislocation is seen. Osseous alignment is anatomic. Joint spaces are p reserved. Soft tissues are unremarkable. Impression: Unremarkable left wrist radiographs. Reviewed, dictated and finalized at location M. Impression: Unremarkable left wrist radiographs.
--- NOTE | ~2023-06-30 | XR_ITS ---
Right wrist Technique: PA and lateral views were obtained. Clinical History: Pain Findings: No acute fracture or dislocation is seen. Osseous alignment is anatomic. Joint spaces are p reserved. Soft tissues are unremarkable. Impression: Unremarkable right wrist radiographs. Reviewed, dictated and finalized at location M. Impression: Unremarkable right wrist radiographs.
--- NOTE | ~2023-06-30 | XR_ITS ---
Right Hand Technique: PA and lateral views were obtained. Clinical History: Pain Findings: No acute fracture or dislocation is seen. Osseous alignment is anatomic. Joint spaces are p reserved. Soft tissues are unremarkable. Impression: Unremarkable right hand. Reviewed, dictated and finalized at location M. Impression: Unremarkable right hand.
== END 2023-06-30 10:12 | disposition home or self-care (01) ==
LOC: ANHIMG 10:19
PROVIDERS: PCP Family Medicine Adolescent Medicine; Visit Provider Internal Medicine
DX: R53.81 Other malaise (principal); M25.532 Pain in left wrist; M25.531 Pain in right wrist; M79.642 Pain in left hand; M79.641 Pain in right hand; M79.672 Pain in left foot; M79.671 Pain in right foot; M25.572 Pain in left ankle and joints of left foot; M25.571 Pain in right ankle and joints of right foot
CPT/HCPCS: 73100; 73120; 73600; 73620

== ENCOUNTER 2023-07-11 14:55 | Outpatient (CLI) | payer MEDICARE, SELFPAY ==
--- NOTE | ~2023-07-11 | MR_ITS ---
EXAMINATION: MR brain/brain stem wo/w con DATE: 07/11/2023 16:17 INDICATION: Other symptoms and signs involving cognitive function. Dizziness. Headache. TECHNIQUE: Magnetic resonance imaging (MRI) of the brain and brainstem was performed without and with 20 mL MultiHance intravenous contrast. COMPARISON: Brain MRI 10/08/2019 FINDINGS: There is no intracranial hemorrhage, acute infarction, or abnormal intracranial mass lesion . The ventricles are normal in size. The orbits are normal. There is mild mucosal thickening in the p aranasal sinuses. The mastoid air cells are normal. IMPRESSION: 1. Normal brain. Reviewed, dictated and finalized at location A. IMPRESSION: 1. Normal brain.
== END 2023-07-11 14:56 | disposition home or self-care (01) ==
LOC: ANHIMG 14:56
PROVIDERS: PCP Family Medicine Adolescent Medicine; Visit Provider Student in an Organized Health Care Education/Training Program
DX: R41.89 Other symptoms and signs involving cognitive functions and awareness (principal)
CPT/HCPCS: 70553; A9577

== ENCOUNTER 2023-08-20 07:00 | Outpatient (CLI) | payer MEDICARE, SELFPAY ==
--- NOTE | 2023-08-11 13:16 | PC.NURSE ---
Pre Radiology instructions Report to the outpatient barbara [email or web address] on date _[id number]_ at time _0700_ for procedure Time:_0900_ YOU MAY BE MONITORED AT HOSPITAL FOR UP TO 4 HOURS AFTER YOUR PROCEDURE. A visitor will be allowed to accompany the patient into the hospital. You and your visitor will be asked to self-screen and do not enter if you have any COVID symptoms. A mask is OPTIONAL within the hospital. Patients are to have no food or drink 6 hours prior to procedure time Driving will be restricted after the procedure, you must have a person to drive you home. Labs will be drawn in preop area and once reviewed, you will be taken to radiology area for procedure. When the procedure is completed, you will be taken to outpatient where you will be monitored for several hours. You may have one visitor in this area. Other than holding anti-coagulants, patient may take other medication(s) as scheduled. Prior to your appointment date patients are instructed to hold anti-coagulants after discussing with ordering provider to stop. If unable to discontinue anti-coagulants please notify radiologist. ? No aspirin or warfarin (Coumadin) for 7 days prior to the procedure. ? No clopidogrel (Plavix), ticagrelor (Brilinta), prasugrel (Effient) or dabigatran (Pradaxa) for 5 days prior to the procedure. ? No rivaroxaban (Xarelto), apixaban (Eliquis), dipyridamole (Aggrenox or Persantine) or cilostazol (Pletal) for 2 days prior to the procedure. Medications to discontinue per physician: Date to take last dose: Please leave all valuables, including medications, at home the day of procedure. The hospital will not accept responsibility for valuables. Wear comfortable, loose fitting clothing.? Follow any additional instructions given to you from ordering provider. Telephone instructions given to Danna and asked if any additional questions and then verbalized understanding. Patient advised to call scheduling provider office or registration scheduling [phone] if any additional questions.
[2023-08-11 13:21] VITALS: BMI 38.0
[2023-08-20] VITALS (8 sets, daily range): BP systolic 129–152; BP diastolic 71–83; PULSE 82–87; RESP 16–18; TEMP 36.9; O2SAT 97–100
--- NOTE | ~2023-08-20 | XR_ITS ---
EXAMINATION: XR lumbar puncture diagnostic DATE: 08/20/2023 10:42 INDICATION: Cognitive decline TECHNIQUE: The procedure including the risks and benefits was discussed with the patient. Risks discu ssed included spinal headache, cerebrospinal fluid leak, bleeding, and infection. The patient underst ood the risks and agreed to proceed. A timeout was performed to verify the patient's name, date of , and procedure to be performed. The skin overlying the L4-L5 level was prepped and draped in usual sterile fashion. Subcutaneous 1% lidocaine was used for local anesthesia. A 5 inch r22 gauge spinal needle was advanced under fluoroscopic guidance. The needle was removed and the entry site was cleaned and dressed. There were no immediate complications. A total of 1 fluoroscopic image(s) were obtained. The amount of fluoroscopy time used during this procedure was 0.3 minutes. Total DAP was 1 0.244 Gycm^2 The patient was taken to the nursing area for observation. FINDINGS: Real-time fluoroscopy demonstrates the needle at the L4-L5 level. Opening pressure was 15 c m water. (Normal range is variably defined as 6-20 cm water and up to 25 cm water in obese patients. Pressure >25 cm water is one of the modified Dandy criteria for idiopathic intracranial hypertension) . 12 mL of clear, colorless fluid was collected in 4 tubes. IMPRESSION: 1. Successful fluoro-guided lumbar puncture with normal opening pressure of 15 cm water. Reviewed, dictated and finalized at location A.
[2023-08-20 08:23] LABS: Immature Platelet Fraction Pct 7.7 % (0.9-11.2); Mean Platelet Volume 11.3 fl (7.4-10.4); Platelet Count Result 106 k/mm3 (150-375)
[2023-08-20 08:35] LABS: Prothrombin Time 13.5 Seconds (11.1-14.7)
[2023-08-20 11:11] LABS: Appearance CSF Clear (Clear); CSF source CSF; Color CSF Colorless (Colorless); Nucleated Cell CSF 0 /uL (0-5)
[2023-08-20 11:16] LABS: Red Blood Cell CSF 2 (0-2)
[2023-08-20 11:17] LABS: Glucose CSF 82 mg/dL (40-70); Total Protein CSF 53 mg/dL (12-60)
--- NOTE | 2023-08-20 12:57 | SUR.PHASEII ---
1200 DR. RITCHIE CAME TO SEE PATIENT.
== END 2023-08-20 12:21 | disposition home or self-care (01) ==
PROVIDERS: PCP Family Medicine Adolescent Medicine; Referring Provider Student in an Organized Health Care Education/Training Program; Visit Provider Radiology Diagnostic Radiology
PROC: 009U3ZZ Drainage of Spinal Canal, Percutaneous Approach (ICD-10-PCS; CPT 62328; principal; 2023-08-20 09:00)
DX: Z01.818 Encounter for other preprocedural examination (principal); R41.89 Other symptoms and signs involving cognitive functions and awareness
CPT/HCPCS: 36415; 62328; 82945; 84157; 85049; 85055; 85610; 87070; 89051

== ENCOUNTER 2023-11-04 11:00 | Emergency (ER) | payer MEDICARE, SELFPAY ==
[2023-11-04 11:42] VITALS: BP 142/79; PULSE 77; RESP 16; TEMP 36.8; O2SAT 96
--- NOTE | 2023-11-04 13:00 | ED.GENADULT ---
HPI - General Adult General Chief complaint: Skin/Abscess/Foreign Body Stated complaint: Insect Bite Left Leg/On left Arm Source: patient Mode of arrival: ambulatory Limitations: no limitations History of Present Illness HPI narrative: Patient presents for evaluation of skin concerns. He has a raised area of redness to the left wrist. He is unable to tell me the exact duration of time in which he has had his symptoms but states at least for 1 week. Denies any new lotions, soaps, detergents, topical products. He states he had a ?pimple? in the affected area. The white fluid is no longer present. It now is pruritic. He has a similar lesion to his left ankle for an unknown duration of time. No chills, nausea vomiting. He is diabetic. He does not check his blood sugar because they are well controlled. He has not tried any therapies to assist with his symptoms. Related Data Home Medications Medication Instructions Recorded Confirmed ibuprofen 200 mg capsule 1,200 mg PO Q6H PRN Pain 08/11/23 08/11/23 Allergies Allergy/AdvReac Type Severity Reaction Status Date / Time poison oak extract Allergy Unknown Rash Verified 08/20/23 08:19 venom-wasp AdvReac Unknown Unknown Verified 08/20/23 08:19 Review of Systems Review of Systems: CONSTITUTIONAL: Denies fever, chills, or sweats. EYES: Denies visual changes, redness, or discharge. ENT: Denies rhinorrhea, congestion, sore throat, or otalgia. CARDIOVASCULAR: Denies chest pain, palpitations, or edema. RESPIRATORY: Denies cough or dyspnea. GASTROINTESTINAL: Denies abdominal pain, nausea, vomiting, or diarrhea. GENITOURINARY: Denies dysuria or hematuria. SKIN: Reports a recent pustule to the left wrist that has since erupted. Reports residual raised area of erythema. Reports erythematous lesion to the left ankle. MUSCULOSKELETAL: Denies back pain, joint pain, or myalgia. NEUROLOGIC: Denies headache, numbness, dizziness, or weakness. PSYCHIATRIC: Denies anxiety or depression. [facility] Past Medical History Medical History Achilles tendinitis of left lower extremity Acid reflux Alcohol use Anxiety Arthritis of knee, left Colon cancer screening Constipation Diabetes Diabetes type 2, controlled Diarrhea Excessive hunger Excessive thirst Generalized anxiety disorder Hearing loss Hypertension Knee pain, left Left lower quadrant abdominal pain Methadone use Plantar fasciitis of left foot Testicular cancer Testicular hypofunction Trigger thumb of right hand Wears glasses Weight gain Surgical History Surgical History History of appendectomy History of carpal tunnel surgery Hx of cholecystectomy Family History Family History Mother Breast cancer Depression Hypertension Other Diabetes mellitus Social History Social History Smoking status: Never smoker Second hand tobacco smoke exposure: No Alcohol intake: never Substance use: never Substance use type: does not use Living arrangements: with friend(s) Occupation/Education: unemployed Gender identity (if verbalized by the patient): Male Sexual Orientation (if Verbalized by the Patient): Straight or Heterosexual Spiritual care concerns: No Agree to blood products: Yes Exam Narrative: GENERAL: Well-appearing, well-nourished, and in no acute distress. HEAD: Normocephalic, atraumatic. EYES: PERRLA and EOMI. ENT: Nares clear, no rhinorrhea or epistaxis. Mucous membranes moist. Oropharynx without tonsillar hypertrophy exudate or other lesions. Bilateral TMs pearly choi nonbulging NECK: Supple. No adenopathy or masses. No carotid bruits or JVD CHEST: Clear to auscultation. No respiratory distress. No wheezes rales or rhonchi HEART: Regular rate and
== END 2023-11-04 13:13 | disposition home or self-care (01) ==
PROVIDERS: Emergency Provider Nurse Practitioner; PCP Family Medicine Adolescent Medicine
DX: L73.9 Follicular disorder, unspecified (principal); K52.9 Noninfective gastroenteritis and colitis, unspecified; E11.9 Type 2 diabetes mellitus without complications; I10 Essential (primary) hypertension; M17.12 Unilateral primary osteoarthritis, left knee; Z85.47 Personal history of malignant neoplasm of testis
CPT/HCPCS: 99213; G0463

== ENCOUNTER 2023-12-04 12:24 | Outpatient (CLI) | payer MEDICARE, SELFPAY ==
--- NOTE | ~2023-12-04 | US_ITS ---
US scrotum doppler INDICATION: Testicular pain and tenderness TECHNIQUE: Testicular sonogram utilizing grayscale and color Doppler FINDINGS: The left testicle is surgically absent. Right testicular echotexture is normal. No discrete mass. Normal Doppler signal. Right epididymis is within normal limits. Small right hydrocele. IMPRESSION: 1. Small right hydrocele. Reviewed, dictated and finalized at location B. IMPRESSION: 1. Small right hydrocele.
== END 2023-12-04 12:25 | disposition home or self-care (01) ==
LOC: ANHIMG 12:25
PROVIDERS: PCP Family Medicine Adolescent Medicine; Visit Provider Family Medicine Adolescent Medicine
DX: N43.3 Hydrocele, unspecified (principal)
CPT/HCPCS: 76870; 93976

== ENCOUNTER 2024-03-21 09:06 | Emergency (ER) | payer MEDICARE, SELFPAY ==
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
--- OUTSIDE RECORDS SUMMARY | 2024-03-21 09:09 | XMS_ITS | Clinical Summary ---
Author Organization [facility] Address [address] [place] [address] Phone Care Team Providers Care Automatic Presser Name Role Phone Shon Barroso MD Primary Care Provider + Social History Tobacco Use Types Packs/Day Years Used Date Smoking Tobacco: Never Assessed Sex and Gender Information Value Date Recorded Sex Assigned at Not on file Legal Sex Male 9:09 PM CDT Gender Identity Not on file Sexual Orientation Not on file Plan of Treatment Health Maintenance Due Date Last Done Comments Hepatitis C Virus (HCV) Screening 1976 TdaP Immunization 1976 Hepatitis B Immunization (1 of 3 - 19+ 3-dose series) 11/22/1995 Colonoscopy 2021 Colorectal Cancer Screening 2021 Influenza Immunization (#1) 10/12/20230 04/2020, 01/05/2020, 12/15/2018 SARS-COV-2 Immunization ( season) 2023 06/13/2020 Respiratory Syncytial Virus (RSV) Immunization (Adult) (1 - 1-dose 75+ series) 11/22/2051 Meningococcal Immunization (ACWY) Aged Out No longer eligible b ased on patient's age to complete this topic Pneumococcal Immunization Combined Aged Out No longer eligible b ased on patient's age to complete this topic Rotavirus Immunization Aged Out No lo nger eligible based on patient's age to complete this topic Insurance MEDICARE C AETNA Care Teams Automatic Presser Relationship Specialty Start Date End Date Shon Barroso MD [address] [place] [address] PCP - General Family Medicine 03/02/21
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
[2024-03-21 09:14] VITALS: BP 162/72; PULSE 81; RESP 20; TEMP 36.9; O2SAT 99
--- NOTE | 2024-03-21 09:18 | ED.URI ---
HPI - URI/Sore Throat General Chief Complaint: Upper Respiratory Infection Stated Complaint: exposed to influenza A Time Seen by Provider: 03/21/24 09:18 Source: patient, RN notes reviewed and old records reviewed Mode of arrival: ambulatory Limitations: no limitations History of Present Illness HPI Narrative: Patient presents with complaints runny nose and cough, slight body aches. He reports symptoms began last night before bed. He took 1 dose of ibuprofen yesterday, has not had any medications since. He denies any injury or trauma. He is not in any obvious distress. He voices no other concerns or complaints at this time. Related Data Home Medications ?Medication ?Instructions ?Recorded ?Confirmed ?Last Taken ?Type ibuprofen 200 mg capsule 1,200 mg PO Q6H PRN Pain 08/11/23 11/26/23 Unknown History triamcinolone acetonide 0.1 % 1 applic topical TID PRN 11/25/23 11/26/23 Unknown History topical cream Allergies Allergy/AdvReac Type Severity Reaction Status Date / Time poison oak extract Allergy Unknown Rash Verified 11/25/23 10:35 venom-wasp AdvReac Unknown Unknown Verified 11/25/23 10:35 Review of Systems Review of Systems: All systems reviewed & are unremarkable except as noted in HPI and below Constitutional: Constitutional: Reports no additional constitutional complaints and Reports chills ENT: Reports system reviewed and no additional complaints, except as documented, Reports nasal congestion and Reports nasal discharge Cardiovascular: Cardiovascular: Reports no additional cardiovascular complaints Respiratory: Respiratory: Reports no additional respiratory complaints and Reports cough Gastrointestinal: Gastrointestinal: Reports no additional gastrointestinal complaints COUNTS INCLUDE 234 BEDS AT THE [facility] Past Medical History Medical History Colon cancer screening Left lower quadrant abdominal pain Hypertension Generalized anxiety disorder Testicular hypofunction Diabetes type 2, controlled Knee pain, left Excessive hunger Excessive thirst Arthritis of knee, left Plantar fasciitis of left foot Achilles tendinitis of left lower extremity Hearing loss Wears glasses Weight gain Trigger thumb of right hand Testicular cancer Methadone use Alcohol use Anxiety Diabetes Acid reflux Constipation Diarrhea Surgical History Surgical History History of carpal tunnel surgery Hx of cholecystectomy History of appendectomy Family History Family History Mother Breast cancer Depression Hypertension Other Diabetes mellitus Social History Social History Smoking status: Never smoker Second hand tobacco smoke exposure: No Alcohol intake: never Substance use: never Substance use type: does not use Living arrangements: with friend(s) Occupation/Education: unemployed Gender identity (if verbalized by the patient): Male Sexual Orientation (if Verbalized by the Patient): Straight or Heterosexual Spiritual care concerns: No Agree to blood products: Yes Comments At the time of my signature, I reviewed and agree with the nursing past medical, surgical, social, and family history. There is no relevant family history pertinent to the patient complaint. Exam Const: General: cooperative, no acute distress, alert and awake Orientation/consciousness: oriented to person, oriented to place and oriented to time HENMT: Head: normal to inspection Ears: TM's normal bilaterally Mouth: Yes moist mucous membranes Throat: posterior oropharynx normal Resp: Effort & Inspection: normal respiratory effort and able to speak in complete sentences Auscultation: clear to auscultation bilaterally, no crackles, no rales, no rhonchi and no wheezes Cardio: Palpation: normal PMI Rate: regular rate Rhythm: regular rhythm Heart sounds: S1 normal heart sound present and S2 normal heart sound present Neuro: General: oriented to person, oriented to place and oriented to time Cranial nerves: Yes CN's II-XII intact bilaterally Psych: Appearance: grossly normal Thought process: Normal thought process present Insight: Good insight present (Psych) Judgement: Good judgement present (Psych) Course Course Level of Care: Express Care Visit Vital Signs Vital signs: Reviewed MDM - URI/Sore Throat MDM Narrative Medical decision making narrative: Negative COVID, negative flu. Patient counseled that symptoms may not have been present long enough for either of these viruses to show up on testing. He is advised to get [id number] medications to treat his symptoms and follow package instructions. He is further advised follow-up with primary care provider regarding his elevated blood pressure. Emergency department precautions discussed. Discharge instructions reviewed with patient, as well as provided in writing per nursing staff. The instructions also include specific and strict return/GO TO THE ER as well as f/u information. All questions have been answered, and the patient deny any further questions with discharge and discharge plan. Some parts of this dictation were generated by voice recognition software and may contain typographical and/or grammatical inaccuracies. Differential Diagnosis Differential diagnosis: Likely upper respiratory infection, otitis media, viral infection and influenza Medical Records Attestation: I reviewed the patient's medical records. Lab Data Attestation: I reviewed the patient's lab results. Discharge Plan Discharge Clinical Impression: Viral illness, Elevated blood pressure reading Patient Disposition: Home, Self-Care Condition: Stable Instructions: Antibiotic Form, Cold Symptoms (ED) Additional Instructions: use [id number] medications to treat your symptoms. Please follow the package instructions. Follow-up with primary care provider. Emergency department for new or worse symptoms. Blood pressure today is elevated at 162/72. Please discuss this with your primary care provider as soon as possible Patient Language: Czech Prescriptions: No Action triamcinolone acetonide 0.1 % cream 1 applic topical TID PRN (DME) lancets 31 gauge misc See Rx Instructions .ROUTE .MEDSUPPLY Qty: 100 0RF Rx Instructions: As directed lidocaine 5 % adhesive patch,medicated 2 patch topical DAILY Qty: 30 1RF Rx Instructions: leave on most painful area for up to 12 hrs ibuprofen 200 mg Capsule 1,200 mg PO Q6H PRN (Reason: Pain) (DME) Blood Glucose Test Strip See Rx Instructions .ROUTE .MEDSUPPLY Qty: 400 6RF Rx Instructions: Use to check BS 4 times daily (DME) blood-glucose meter Misc See Rx Instructions .ROUTE .MEDSUPPLY Qty: 1 0RF Rx Instructions: Use to check BS 4 times daily quetiapine 100 mg tablet 100 mg PO BID Qty: 180 2RF Patient Comments: ONLY TAKES AT BEDTIME pregabalin [Lyrica] 150 mg capsule 150 mg PO TID Qty: 90 5RF glimepiride 1 mg tablet 1 mg PO QAM Qty: 90 2RF Rx Instructions: administer with breakfast lisinopril 20 mg tablet 20 mg PO DAILY Qty: 90 2RF Rx Instructions: TAKE 1 TABLET DAILY omeprazole 40 mg capsule,delayed release(DR/EC) 40 mg PO BID Qty: 180 2RF venlafaxine 75 mg capsule,extended release 24hr 75 mg PO DAILY Qty: 30 1RF amitriptyline 25 mg tablet 25 mg PO QHS Qty: 30 1RF etodolac 500 mg tablet 500 mg PO BID PRN (Reason: Pain) Qty: 180 1RF hydrocodone-acetaminophen 10-325 mg tablet 1 tablet PO Q6H PRN (Reason: pain) Qty: 80 0RF Follow-up/Referrals: Shon Barroso MD [Primary Care Provider] - 2 Weeks Time of Disposition: 09:44
[2024-03-21 09:37] LABS: EDCOVIDSCREEN Negative (Negative); EDINFLUASCREEN Negative (Negative); EDINFLUBSCREEN Negative (Negative)
== END 2024-03-21 09:51 | disposition home or self-care (01) ==
PROVIDERS: Emergency Provider Nurse Practitioner Family; PCP Family Medicine Adolescent Medicine
DX: B34.9 Viral infection, unspecified (principal); I10 Essential (primary) hypertension; Z20.822 Contact with and (suspected) exposure to COVID-19; E11.9 Type 2 diabetes mellitus without complications; K21.9 Gastro-esophageal reflux disease without esophagitis; M17.12 Unilateral primary osteoarthritis, left knee
CPT/HCPCS: 87426; 87804; 99212; G0463